=== PATIENT | female | born 1965 | race Caucasian/White ===

== ENCOUNTER 2017-09-10 07:39 | Emergency (ER) | payer BC, OTHER ==
[2017-09-10 07:47] VITALS: BP 111/75
--- NOTE | 2017-09-10 15:08 | UC ---
Riaz Carlson Angela, scribed for Rosalinda Westfall DO on 09/10/17 at 0754 . Throat Pain/Nasal Biju HPI - HPI Summary HPI Summary: This pt is a 52 y/o female presenting to [facility] c/o intermittent sore throat x4 days, worsening since 2 days ago. Pt reports her lymph nodes are swollen. She states "it feels like razor blades." Pt is able to eat and drink but is very painful. Pt denies foreign body sensation in her throat. She additionally c/o losing her voice. Pt denies change of baseline cough, nasal congestion, SOB, chest pain, nausea, vomiting, dysuria, urinary frequency/urgency, fatigue. She is unsure if she had a fever. She had left ear pain on 1 day but since has now resolved. She notes her urine has been a little darker due to not drinking too much water. Pt was last year in the hospital for a perforated bowel. She states she was on antibiotics for 9 months. PMHx includes perforated bowel, seasonal allergies. - History of Current Complaint Stated Complaint: SORE THROAT Hx Obtained From: Patient Onset/Duration: Lasting Days, Still Present, Worse Since - 2 days ago Severity: Severe Pain Intensity: 8 Pain Scale Used: 0-10 Numeric Cough: Other: - baseline cough Associated Signs & Symptoms: Positive: Other - losing voice, dark urine color. Negative: Dysphagia, Sinus Discomfort, Vomiting - Allergies/Home Medications Allergies/Adverse Reactions: Allergies Allergy/AdvReac Type Severity Reaction Status Date / Time No Known Drug Allergy Allergy Unknown Verified 09/10/17 07:43 Reaction Details hay fever Allergy Itching Uncoded 09/10/17 07:43 PMH/Surg Hx/FS Hx/Imm Hx - Additional Past Medical History Additional PMH: PMHx: R ACL replacement, seasonal allergies Other Endocrine History: DENIES: diabetes Respiratory History: Asthma GI/ History: Other Other GI/ History: Diverticulosis. Hx of perforated bowel. - Surgical History Surgical History: Yes Surgery Procedure, Year, and Place: cervical bx, carple tunnel, R ACL right knee , perf bowel - Family History Known Family History: Positive: Hypertension, Respiratory Disease - emphysema, Other - asthma, [place] - Social History Alcohol Use: Occasionally Substance Use Type: None Smoking Status (MU): Former Smoker - Immunization History Most Recent Influenza Vaccination: 2016 Most Recent Tetanus Shot: unkown Most Recent Pneumonia Vaccination: 11/2015 Review of Systems Constitutional: Other - POS: losing voice, swollen lymph nodes. NEG: fatigue, foreign body sensation in throat. Skin: Negative Eyes: Negative ENT: Sore Throat Respiratory: Cough - unchanged from baseline Cardiovascular: Negative Gastrointestinal: Negative Genitourinary: Other - POS: darker urine color. NEG: dysuria, hematuria, frequency, urgency Motor: Negative Neurovascular: Negative Musculoskeletal: Negative Neurological: Negative Is Patient Immunocompromised?: No All Other Systems Reviewed And Are Negative: Yes Physical Exam Triage Information Reviewed: Yes Appearance: Well-Appearing, No Pain Distress, Well-Nourished Vital Signs: Initial Vital Signs Temp 97.2 F 09/10/17 07:45 Pulse 78 09/10/17 07:45 Resp 16 09/10/17 07:45 BP 111/75 09/10/17 07:45 Pulse Ox 100 09/10/17 07:45 Vital Signs Reviewed: Yes Eyes: Positive: Conjunctiva Clear. Negative: Discharge ENT: Positive: Hearing grossly normal, Pharyngeal erythema - mild, Hoarse voice - some hoarse voice, Other - palate is symmetrical. No petechiae. No sign of abscess.. Negative: Muffled voice Neck exam: Normal Neck: Positive: Supple, Other: - some lymphadenopathy Respiratory: Positive: Lungs clear, Normal breath sounds, No respiratory distress, No accessory muscle use Cardiovascular: Positive: RRR, No Murmur Musculoskeletal Exam: Normal Neurological: Positive: Alert, Muscle Tone Normal Psychological Exam: Normal Psychological: Positive: Age Appropriate Behavior Skin Exam: Normal, Other - Warm, dry, normal color. Throat Pain/Nasal Course/Dx - Course Assessment/Plan: Medications reviewed this visit. Rapid strep test is negative for strep throat. Pt will be discharged home with Tylenol/codeine, magic mouth wash, and prednisone. - Differential Dx/Diagnosis Provider Diagnoses: Pharyngitis. Discharge - Discharge Plan Condition: Good Disposition: HOME Prescriptions: Acetaminop/Codeine 30 MG TAB* [Tylenol/Codeine 30 MG TAB*] 1 - 2 tab PO BEDTIME PRN #7 tab MDD 2 TABS PRN Reason: Pain Magic Mouth Was-ERICA/MAAL/LIDO* 5 ml SWISH SPIT QID #100 ml predniSONE TAB* [Deltasone TAB*] 40 mg PO DAILY #10 tab Patient Education Materials: Pharyngitis (ED) Referrals: Lilliam Chamorro MD [Primary Care Provider] - 3 Days (follow up in 3-5 days if not improving.) Additional Instructions: Drink plenty of water. DISCUSSED, TRY MAGIC MOUTHWASH TO CONTROL PAIN PRIOR TO EATING. CORTICOSTEROID MEDICATION: You have been given a medicine of the cortisone class. This medication is used to control inflammation or allergy. It is usually only given for a short period of time, until the acute process subsides. There are usually no side effects from short-term use of cortisone-like medications. Some persons feel an increased sense of well-being and are not sleepy at bedtime. Long-term use of cortisone medications is best avoided, unless required for a severe condition. If your condition does not remit, or relapses after the course of corticosteroid medication, you should consult your physician. Contact the physician if you develop lightheadedness, black or tarry stools , swelling of the legs, or significant rapid change in weight. ACETAMINOPHEN WITH CODEINE: You have been given a prescription for acetaminophen with codeine for pain control. Codeine is a narcotic. It is best taken with food, as nausea can result if taken on an empty stomach. Don't operate machinery or drive within six hours of taking this medication. Do not combine this medication with alcohol, or with any sedative type medicine such as cold tablets or sleeping pills unless your doctor gives permission. Narcotics tend to cause constipation. It's best to get plenty of fluids, fiber, and fruits. IF YOU DEVELOP ANY DIFFICULTY BREATHING, AN INABILITY TO SWALLOW OR A FOREIGN BODY SENSATION IN YOUR THROAT YOU SHOULD BE RE-EVALUATED IMMEDIATELY. The documentation as recorded by the Riaz suazo Angela accurately reflects the service I personally performed and the decisions made by , Rosalinda Westfall DO.
== END 2017-09-10 08:37 | disposition home or self-care (01) ==
LOC: UCEAST 07:39
DX: J02.9 Acute pharyngitis, unspecified (principal); Z87.891 Personal history of nicotine dependence
CPT/HCPCS: 87651; 99212; G0463